=== PATIENT | male | born 1950 | race Hispanic/Latino ===

== ENCOUNTER 2020-12-30 18:07 | Emergency (ER) | payer MEDICARE ==
[2020-12-30] MEDS ORDERED: LIDOCAINE PF 100 MG/5 ML (CARDIAC SYRINGE) IV ONE ×2 (18:20→18:35)
[2020-12-30] MEDS ORDERED: ETOMIDATE 20 MG/10 ML INJ IV ONE (18:20)
[2020-12-30] MEDS ORDERED: ROCURONIUM 50 MG/5 ML INJ IV ONE (18:20)
[2020-12-30] MEDS ORDERED: ETOMIDATE 20 MG/10 ML INJ IV NR (18:35)
[2020-12-30] MEDS ORDERED: ROCURONIUM 50 MG/5 ML INJ IV NR (18:35)
[2020-12-30] MEDS ORDERED: MINERAL OIL/PETROLATUM, WHITE OPHTH OINT 3.5 GM OU PRN (18:35)
[2020-12-30] MEDS ORDERED: fentaNYL 100 MCG/2 ML INJ IV PRN (18:35)
[2020-12-30] MEDS ORDERED: LIP THERAPY VASELINE TP PRN (18:35)
[2020-12-30 18:38] LABS: Basophils % (Auto) 0.2 % (0.0-1.8); Eosinophils # (Auto) 0.1 K/mm3 (0.0-0.4); Eosinophils % (Auto) 2.7 % (0.0-4.3); Hematocrit 38.1 % (35.5-45.6); Hemoglobin 13.4 gm/dl (11.8-15.2); Mean Corpuscular HGB Conc 35 % (32-34); Mean Corpuscular Volume 93 fl (84-94); Monocytes # (Auto) 0.5 K/mm3 (0.0-0.8); Monocytes % (Auto) 8.4 % (0.0-7.3); Platelet Count 145 K/mm3 (140-440); Red Blood Count 4.11 M/mm3 (3.65-5.03); Red Cell Distribution Width 13.7 % (13.2-15.2)
[2020-12-30] MEDS ORDERED: hydrALAZINE 20 MG/1 ML INJ IV NR (18:39)
--- NOTE | 2020-12-30 18:39 | Emergency Department Report ---
ED General Adult HPI - General Chief complaint: Altered Mental Status Stated complaint: patient non verbal Time Seen by Provider: 12/30/20 18:09 Source: EMS (Verbal report received from emergency medical services. EMS documentation not available at time of chart dictation ), RN notes reviewed Mode of arrival: Stretcher Limitations: Altered Mental Status, Physical Limitation - History of Present Illness Initial comments: The patient was evaluated in the emergency department for symptoms described in the history of present illness. He/she was evaluated in the context of the global COVID-19 pandemic, which necessitated consideration that the patient might be at risk for infection with the virus that causes COVID-19. Institutional protocols and algorithms that pertain to the evaluation of patients at risk for COVID-19 are in a state of rapid change based on information released by regulatory bodies including the CDC and federal and state organizations. These policies and algorithms were followed during the patient's care in the emergency department. Please note that these policies, procedures and recommendations changed on a rapid basis. This is a 70-year-old gentleman. He is not known to myself previously. He is brought to the hospital by EMS as a possible code stroke. EMS believes that patient's last known well time is at approximately 5:05 PM, but they are not certain. They report normal Accu-Chek in the field. They stated that the patient was hypotensive in the field, and altered. Upon arrival to this emergency room, the patient is altered, and breathing sonorous sleep. He moves his right arm. He does not answer questions. He does not move his left arm or left leg. He started to vomit in the emergency room. He was intubated emergently for acute respiratory failure, inability to protect airway, and acute alteration in mental status. He was intubated using rapid sequence induction techniques. Please reference my procedure note. The patient is not currently accompanied by friends or family at this time for collateral information or additional information. Called up attached phone number, [phone]. It did not ring. There is no answer. At the moment, patient intubated, sedated, altered, not able to describe qualitative nature of symptoms, exacerbating factors, relieving factors or aggravating factors. -: unknown - Related Data Allergies Allergy/AdvReac Type Severity Reaction Status Date / Time meperidine [From Demerol] AdvReac Unknown Verified 12/30/20 21:59 ED Review of Systems ROS: Stated complaint: POSS CVA Other details as noted in HPI Comment: Unobtainable due to pts medical conditions ED Physical Exam - General Limitations: Altered Mental Status General appearance: obtunded - Head Head exam: Present: atraumatic, normocephalic - Eye Eye exam: Present: normal appearance, PERRL - ENT ENT exam: Present: normal exam, normal orophraynx, mucous membranes moist, normal external ear exam, other (Copious secretions noted in the oropharynx) - Neck Neck exam: Present: normal inspection. Absent: tenderness, meningismus - Respiratory Respiratory exam: Present: respiratory distress, rales - Cardiovascular Cardiovascular Exam: Present: normal rhythm, bradycardia, normal heart sounds. Absent: tachycardia, irregular rhythm, systolic murmur, diastolic murmur, rubs, gallop - GI/Abdominal GI/Abdominal exam: Present: soft. Absent: distended, tenderness, guarding, rebound, rigid, pulsatile mass - Rectal Rectal exam: Present: normal inspection - External exam: Present: normal external exam - Extremities Exam Extremities exam: Present: normal inspection, pedal edema, other (2+ pulses noted in the bilateral upper and lower extremities. There is no palpable cord. negative Homans sign. Muscular compartments are soft. The pelvis is stable.). Absent: calf tenderness - Back Exam Back exam: Present: normal inspection. Absent: tenderness, CVA tenderness (R), CVA tenderness (L), paraspinal tenderness, vertebral tenderness - Neurological Exam Neurological exam: Present: altered, other (The patient is initially sleepy. The patient makes nonspecific sounds. The patient moves right arm to pain. The eyes do not open spontaneously.) - Skin Skin exam: Present: warm, dry, intact, normal color. Absent: rash ED Course Vital Signs 12/30/20 12/30/20 12/30/20 18:25 18:27 18:31 Temperature 97.4 F L Pulse Rate 66 Respiratory 11 L Rate Blood Pressure O2 Sat by Pulse 100 100 100 Oximetry 12/30/20 12/30/20 12/30/20 18:40 19:01 19:10 Temperature Pulse Rate 57 L 59 L Respiratory 11 L 14 Rate Blood Pressure 194/80 244/93 O2 Sat by Pulse 100 100 100 Oximetry 12/30/20 12/30/20 12/30/20 19:24 19:25 19:51 Temperature Pulse Rate 55 L 59 L 54 L Respiratory 28 H Rate Blood Pressure 194/76 240/93 140/59 O2 Sat by Pulse 100 100 Oximetry 12/30/20 12/30/20 12/30/20 20:00 20:11 20:21 Temperature Pulse Rate 56 L 54 L 50 L Respiratory 28 H 24 18 Rate Blood Pressure 144/66 154/62 130/53 O2 Sat by Pulse 100 100 100 Oximetry 12/30/20 12/30/20 12/30/20 20:30 20:41 20:51 Temperature Pulse Rate 50 L 52 L 54 L Respiratory 12 22 36 H Rate Blood Pressure 126/56 124/55 114/45 O2 Sat by Pulse 100 100 99 Oximetry 12/30/20 12/30/20 12/30/20 21:00 21:11 21:21 Temperature Pulse Rate 57 L 56 L 56 L Respiratory 36 H 36 H 36 H Rate Blood Pressure 115/46 99/46 84/45 O2 Sat by Pulse 99 100 100 Oximetry 12/30/20 12/30/20 12/30/20 21:26 21:30 21:41 Temperature Pulse Rate 55 L 54 L 54 L Respiratory 36 H 36 H Rate Blood Pressure 114/45 84/45 86/50 O2 Sat by Pulse 100 100 100 Oximetry 12/30/20 12/30/20 12/30/20 21:51 22:00 22:11 Temperature Pulse Rate 54 L 52 L 50 L Respiratory 32 H 36 H 36 H Rate Blood Pressure 83/50 128/48 134/51 O2 Sat by Pulse 100 100 100 Oximetry 12/30/20 12/30/20 22:20 22:31 Temperature Pulse Rate 53 L 50 L Respiratory 36 H 36 H Rate Blood Pressure 116/56 137/57 O2 Sat by Pulse 100 100 Oximetry - Reevaluation(s) Reevaluation #1: 12/30/20 19:21 Differential diagnosis, including but not limited to: Stroke, ischemic versus hemorrhagic, pneumonia, urinary tract infection, toxic encephalopathy, metabolic encephalopathy Assessment and plan: 70-year-old gentleman with acute respiratory failure, and encephalopathy, secondary to massive hemorrhagic stroke, and supratherapeutic INR. He required intubation during his primary survey. He is not accompanied by friends or family at this time for collateral information or additional information. Nobody answered listed phone number, and it did not ring. Goals of care are not known at this time. Contacted our neurosurgeon on-call, Dr. Kamla Napoles Discussed the patient's history, physical, CT scan findings. He has also evaluated this patient CT scan personally. He recommends transfer to a higher level of care, as we are not able to intervene definitively on this patient. Patient will be ventilated aggressively, and hyperventilated. He will be loaded with 4 g of Keppra, head of bed to be elevated, and we will also start mannitol therapy. We will also begin him on propofol, and Cardene for blood pressure c ontrol. We will administer vitamin K, and for factor prothrombin complex concentrate. Patient still at this time does not have friends of family available for collateral information or additional information. 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 Nevertheless, we will maximally resuscitate this patient, and to transfer him to a high level of care. This patient will be emergently administratively consented by myself for transfer for higher level of care. 12/30/20 21:09 Multiple discussions had with neurosurgery, Dr. Kulkarni and neurology critical care, Dr. Carlos Groves They recommended discontinuation of patient's sedation, and repeat neurologic examination, in order to assess for neurologic salvageability. Therefore, fentanyl was discontinued, and propofol was not started. Off sedation, patient moves 4 extremities to painful stimuli. He has a gag and cough reflex, and gags and coughs when the endotracheal tube is manipulated, advanced, or deeply suction. Corneal reflexes are intact. Pupils are irregular, but his has since arrived, Ms. Mitzi Holliday; [phone]. She reports the patient takes Xarelto for A. fib. He takes 20 mg once daily. She states the patient is very regimented about taking his medications and he last took it this morning. Dr. Groves recommended Andexanet gertrudis for reversal of Xarelto. I called up our pharmacy. We do not carry this medication Recontacted Dr. Groves Have discussed this with him. He has articulated understanding. Patient is accepted to [facility]. I also had an extensive discussion with the patient's regarding the nature of his diagnosis, and the severity of his illness. She has signed informed consent for transfer, discussed the risk, benefits and alternatives. 12/30/20 22:50 Blood pressure dipped down to the 80s systolic. Cardene discontinued. 500 cc of normal saline ordered. - Consultations Consultation #1: 12/30/20 19:45 I discussed the patient's history, physical, pertinent laboratory studies and imaging studies with neurosurgeon at [place], Dr. Cornelio Kulkarni He has graciously agreed to consult on this patient at the [place] facility. Dr Carlos Kaufman will be the accepting neuro painting instructor \This patient has an emergent medical and/or surgical condition which cannot be definitively managed at this hospital as we do not have the necessary capability to provide monitoring and neurology critical care for this patient, and/or consulting neurosurgeon has recommended transfer to higher level of care. The patient is hemodynamically stable at this time, and emergently requires transfer for higher level of care. 12/30/20 21:09 - Intubation Time Out Performed: No (Emergency situation) Sedative: Etomidate Mg Given: 20 Paralytic: Rocuronium Mg Given: 100 Laryngoscope: fiberoptic video scope Size: 4 ET Tube Size: 7.5 Tube Secured Depth (cm): 23 Tube Secured Location: teeth Tube Placement Confirmation: visualized tube passing t, equal breath sounds bilat, no breath sounds over epi, confirmation by capnometr Patient Tolerated Procedure: well Intubation Complications: none Additional Comments: Prior to intubation, patient placed on nasal cannula at 15 L/min. He also received simultaneous hbs-etiro-ckuh ventilation with 100% FiO2. He is premedicated with 100 mg of lidocaine. He is induced with 20 mg of etomidate. He is paralyzed with 100 mg of rocuronium. Video laryngoscopy is performed, with a 7.5 endotracheal tube, while nasal cannula running at 15 L/min simultaneously. O2 sat is 99/100%. Trachea and vocal cords are easily identified, and under direct visualization, the patient is intubated. There is appropriate end-tidal capnography color change. There is condensation noted in the tube. This patient tolerated the procedure well. There were no obvious complications. Tube placement is confirmed through capnography, physical exam, Direct visualization, post procedure chest x-ray. The ferry pilot balloon was inflated after passing through the cords. ED Medical Decision Making - Lab Data Result diagrams: 12/30/20 18:27 12/30/20 18:27 Lab Results 12/30/20 12/30/20 12/30/20 Range/Units 18:27 18:27 18:27 WBC 5.5 (4.5-11.0) K/mm3 RBC 4.11 (3.65-5.03) M/mm3 Hgb 13.4 (11.8-15.2) gm/dl Hct 38.1 (35.5-45.6) % MCV 93 (84-94) fl MCH 33 H (28-32) pg MCHC 35 H (32-34) % RDW 13.7 (13.2-15.2) % Plt Count 145 (140-440) K/mm3 Lymph % (Auto) 19.0 (13.4-35.0) % [place] % (Auto) 8.4 H (0.0-7.3) % Eos % (Auto) 2.7 (0.0-4.3) % Baso % (Auto) 0.2 (0.0-1.8) % Lymph # (Auto) 1.0 L (1.2-5.4) K/mm3 [place] # (Auto) 0.5 (0.0-0.8) K/mm3 Eos # (Auto) 0.1 (0.0-0.4) K/mm3 Baso # (Auto) 0.0 (0.0-0.1) K/mm3 Seg Neutrophils % 69.7 (40.0-70.0) % Seg Neutrophils # 3.9 (1.8-7.7) K/mm3 PT 27.7 H (12.2-14.9) Sec. INR 2.53 H (0.87-1.13) APTT 31.7 (24.2-36.6) Sec. Thrombin Time 17.4 (15.1-19.6) Sec. Sodium 136 L (137-145) mmol/L Potassium 3.9 (3.6-5.0) mmol/L Chloride 100.7 (98-107) mmol/L Carbon Dioxide 25 (22-30) mmol/L Anion Gap 14 mmol/L BUN 21 H (9-20) mg/dL Creatinine 1.1 (0.8-1.3) mg/dL Estimated GFR > 60 ml/min BUN/Creatinine Ratio 19 % Glucose 243 H (75-100) mg/dL Lactic Acid (0.7-2.0) mmol/L Calcium 9.9 (8.4-10.2) mg/dL Magnesium (1.7-2.3) mg/dL Total Bilirubin 0.40 (0.1-1.2) mg/dL AST 19 (5-40) units/L ALT 17 (7-56) units/L Alkaline Phosphatase 97 (35-129) units/L Total Creatine Kinase 85 (55-170) units/L CK-MB (CK-2) 2.9 (0.0-4.0) ng/mL CK-MB (CK-2) Rel Index 3.4 (0-4) Troponin T < 0.010 (0.00-0.029) ng/mL Total Protein 7.3 (6.3-8.2) g/dL Albumin 3.7 L (3.9-5) g/dL Albumin/Globulin Ratio 1.0 % TSH (0.270-4.200) mlU/mL Salicylates (2.8-20.0) mg/dL Acetaminophen (10.0-30.0) ug/mL Plasma/Serum Alcohol (0-0.07) % 12/30/20 12/30/20 12/30/20 Range/Units 18:27 18:27 18:27 WBC (4.5-11.0) K/mm3 RBC (3.65-5.03) M/mm3 Hgb (11.8-15.2) gm/dl Hct (35.5-45.6) % MCV (84-94) fl MCH (28-32) pg MCHC (32-34) % RDW (13.2-15.2) % Plt Count (140-440) K/mm3 Lymph % (Auto) (13.4-35.0) % Furn[place] % (Auto) (0.0-7.3) % Eos % (Auto) (0.0-4.3) % Baso % (Auto) (0.0-1.8) % Lymph # (Auto) (1.2-5.4) K/mm3 Furnas # (Auto) (0.0-0.8) K/mm3 Eos # (Auto) (0.0-0.4) K/mm3 Baso # (Auto) (0.0-0.1) K/mm3 Seg Neutrophils % (40.0-70.0) % Seg Neutrophils # (1.8-7.7) K/mm3 PT (12.2-14.9) Sec. INR (0.87-1.13) APTT (24.2-36.6) Sec. Thrombin Time (15.1-19.6) Sec. Sodium (137-145) mmol/L Potassium (3.6-5.0) mmol/L Chloride (98-107) mmol/L Carbon Dioxide (22-30) mmol/L Anion Gap mmol/L BUN (9-20) mg/dL Creatinine (0.8-1.3) mg/dL Estimated GFR ml/min BUN/Creatinine Ratio % Glucose (75-100) mg/dL Lactic Acid 1.50 (0.7-2.0) mmol/L Calcium (8.4-10.2) mg/dL Magnesium 1.90 (1.7-2.3) mg/dL Total Bilirubin (0.1-1.2) mg/dL AST (5-40) units/L ALT (7-56) units/L Alkaline Phosphatase (35-129) units/L Total Creatine Kinase (55-170) units/L CK-MB (CK-2) (0.0-4.0) ng/mL CK-MB (CK-2) Rel Index (0-4) Troponin T (0.00-0.029) ng/mL Total Protein (6.3-8.2) g/dL Albumin (3.9-5) g/dL Albumin/Globulin Ratio % TSH (0.270-4.200) mlU/mL Salicylates (2.8-20.0) mg/dL Acetaminophen (10.0-30.0) ug/mL Plasma/Serum Alcohol < 0.01 (0-0.07) % 12/30/20 12/30/20 12/30/20 Range/Units 18:27 18:27 18:27 WBC (4.5-11.0) K/mm3 RBC (3.65-5.03) M/mm3 Hgb (11.8-15.2) gm/dl Hct (35.5-45.6) % MCV (84-94) fl MCH (28-32) pg MCHC (32-34) % RDW (13.2-15.2) % Plt Count (140-440) K/mm3 Lymph % (Auto) (13.4-35.0) % Furn[place] % (Auto) (0.0-7.3) % Eos % (Auto) (0.0-4.3) % Baso % (Auto) (0.0-1.8) % Lymph # (Auto) (1.2-5.4) K/mm3 Furn[place] # (Auto) (0.0-0.8) K/mm3 Eos # (Auto) (0.0-0.4) K/mm3 Baso # (Auto) (0.0-0.1) K/mm3 Seg Neutrophils % (40.0-70.0) % Seg Neutrophils # (1.8-7.7) K/mm3 PT (12.2-14.9) Sec. INR (0.87-1.13) APTT (24.2-36.6) Sec. Thrombin Time (15.1-19.6) Sec. Sodium (137-145) mmol/L Potassium (3.6-5.0) mmol/L Chloride (98-107) mmol/L Carbon Dioxide (22-30) mmol/L Anion Gap mmol/L BUN (9-20) mg/dL Creatinine (0.8-1.3) mg/dL Estimated GFR ml/min BUN/Creatinine Ratio % Glucose (75-100) mg/dL Lactic Acid (0.7-2.0) mmol/L Calcium (8.4-10.2) mg/dL Magnesium (1.7-2.3) mg/dL Total Bilirubin (0.1-1.2) mg/dL AST (5-40) units/L ALT (7-56) units/L Alkaline Phosphatase (35-129) units/L Total Creatine Kinase (55-170) units/L CK-MB (CK-2) (0.0-4.0) ng/mL CK-MB (CK-2) Rel Index (0-4) Troponin T (0.00-0.029) ng/mL Total Protein (6.3-8.2) g/dL Albumin (3.9-5) g/dL Albumin/Globulin Ratio % TSH 1.310 (0.270-4.200) mlU/mL Salicylates < 0.3 L (2.8-20.0) mg/dL Acetaminophen 5.0 L (10.0-30.0) ug/mL Plasma/Serum Alcohol (0-0.07) % - EKG Data -: EKG Interpreted by Sd EKG shows normal: sinus rhythm Rate: bradycardia - EKG Data When compared to previous EKG there are: previous EKG unavailable 12/30/20 19:27 The EKG is interpreted at 19: 20 Sinus rhythm, bradycardia, rate 54 bpm. Normal axis, normal P wave axis, QTC within normal limits, borderline first-degree AV block, RI interval 207 ms. Left ventricular hypertrophy. Abnormal EKG. Not a STEMI. There is no prior for comparison. - Radiology Data Radiology results: pending, report reviewed, image reviewed CHEST 1 VIEW INDICATION / CLINICAL INFORMATION: anms. COMPARISON: None available. FINDINGS: SUPPORT DEVICES: Endotracheal tube is present. The tip is approximately 3.3 cm from the yeimy. ET tube radiographically appears to be in satisfactory position. HEART / MEDIASTINUM: No significant abnormality. LUNGS / PLEURA: Low lung volumes. Left lung is grossly clear. There is subtle pulmonary opacity in the right lung base which is nonspecific and could be due to atelectasis or pneumonia. No significant pleural effusion or interstitial pulmonary edema noted. No pneumothorax. ADDITIONAL FINDINGS: No significant additional findings. IMPRESSION: 1. Low lung volumes. 2. Minimal right basilar pulmonary opacity, nonspecific. Possibilities include atelectasis versus pneumonia. Clinical correlation is recommended. Signer Name: Lita Fam MD Signed: 12/30/2020 5:42 PM Workstation Name: [id number] CT HEAD WITHOUT CONTRAST INDICATION / CLINICAL INFORMATION: Stroke symptoms. TECHNIQUE: All CT scans at this location are performed using CT dose reduction for ALARA by means of automated exposure control. COMPARISON: None available. FINDINGS: HEMORRHAGE: A large parenchymal hematoma is present in the left gangliocapsular region. This measures about 4.5 x 4.2 x 2.3 cm in overall size. There is intraventricular extension of hemorrhage with blood products filling the left lateral intercostal and third ventricle. Clot fills the aqueduct of Sylvius and fourth ventricle. Blood products are also demonstrated in the right lateral ventricle to a lesser degree. There is developing hydrocephalus. There are about 4 mm of wgwr-zy-vrmlo midline shift at the level of the septum pellucidum. There are approximately 8 mm of trir-ls-vslqz midline shift at the level of the floor the third ventricle. EXTRA-AXIAL SPACES: Cortical sulci are effaced over the left cerebral hemisphere secondary to mass effect resulting from large parenchymal hemorrhage and hydrocephalus. VENTRICULAR SYSTEM: Intraventricular extension of hemorrhage and development of hydrocephalus as described above. CEREBRAL PARENCHYMA: Large parenchymal hematoma left basic ganglia region is described above. MIDLINE SHIFT OR HERNIATION: Mass effect related to left basic ganglia hematoma results at about 4 mm of nyzd-xz-nseac midline shift at the level of the septum pellucidum at about 8 mm of left-to-ri ght midline shift at the level of the floor the third ventricle. CEREBELLUM / BRAINSTEM: Brainstem and cerebellum have an unremarkable appearance. MIDLINE STRUCTURES:No abnormalities of the pituitary gland or pineal region are identified. INTRACRANIAL VESSELS:No abnormalities are identified on this noncontrast head CT. ORBITS: visualized portions of the orbits have an unremarkable appearance. SOFT TISSUES of HEAD: No significant abnormality. CALVARIUM: Evaluation of bone windows reveals no abnormalities. PARANASAL SINUSES / MASTOID AIR CELLS: Visualized portions of the paranasal sinuses are fr ee from inflammatory mucosal disease. Mastoid air cells are normally pneumatized. IMPRESSION: 1. Large acute left gangliocapsular hematoma with intraventricular extension. 2. Developing hydrocephalus. 3. Gvet-gg-jyumo Transfalcine herniation as described above. CRITICAL RESULT: Time of Discovery (LANDING SIGNAL OFFICER/CDT): 1755 Central standard time Time of Communication (LANDING SIGNAL OFFICER/CDT): 1800 Central standard time Licensed Practitioner Receiving Report: Dr. Arnoldo myers of the [facility] emergency department. Read-Back Performed: Not applicable. Signer Name: Segundo Chavez MD Signed: 12/30/2020 6:09 PM Workstation Name: [id number] Critical Care Time: Yes Critical care time in (mins) excluding proc time.: 180 Critical care attestation.: If time is entered above; I have spent that time in minutes in the direct care of this critically ill patient, excluding procedure time. ED Disposition Clinical Impression: Acute respiratory failure, Hypertensive emergency, Acute encephalopathy, Intracranial hemorrhage, Anticoagulated, Hydrocephalus, Pulmonary infiltrate Disposition: 02 SHORT TERM HOSPITAL Is pt being admited?: No Does the pt Need Aspirin: No Condition: Critical Instructions: Hypertension (ED) Referrals: PRIMARY CARE, [Primary Care Provider] - 3-5 Days
--- NOTE | 2020-12-30 18:47 | XRay Report ---
CHEST 1 VIEW INDICATION / CLINICAL INFORMATION: anms. COMPARISON: None available. FINDINGS: SUPPORT DEVICES: Endotracheal tube is present. The tip is approximately 3.3 cm from the yeimy. ET tu be radiographically appears to be in satisfactory position. HEART / MEDIASTINUM: No significant abnormality. LUNGS / PLEURA: Low lung volumes. Left lung is grossly clear. There is subtle pulmonary opacity in th e right lung base which is nonspecific and could be due to atelectasis or pneumonia. No significant p leural effusion or interstitial pulmonary edema noted. No pneumothorax. ADDITIONAL FINDINGS: No significant additional findings. IMPRESSION: 1. Low lung volumes. 2. Minimal right basilar pulmonary opacity, nonspecific. Possibilities include atelectasis versus pne umonia. Clinical correlation is recommended. Signer Name: Lita Fam MD Signed: 12/30/2020 6:42 PM Workstation Name: [id number]
[2020-12-30 18:52] LABS: INR 2.53 (0.87-1.13)
[2020-12-30 18:54] LABS: Partial Thromboplastin Time 31.7 Sec. (24.2-36.6); Thrombin Time 17.4 Sec. (15.1-19.6)
[2020-12-30 18:57] LABS: Creatine Kinase MB 2.9 ng/mL (0.0-4.0)
[2020-12-30 18:59] LABS: Alanine Aminotransferase 17 units/L (7-56); Albumin 3.7 g/dL (3.9-5); BUN/Creatinine Ratio 19; Blood Urea Nitrogen 21 mg/dL (9-20); Calcium 9.9 mg/dL (8.4-10.2); Hemolysis Index 40
[2020-12-30] MEDS ORDERED: levETIRAcetam 1000 MG/NS 0.75% 1,000 MG/100 ML BAG IV ONE (18:59)
[2020-12-30] MEDS ORDERED: fentaNYL DRIP Premix 2,000 MCG/100 ML BAG IV SCH (19:00)
[2020-12-30] MEDS ORDERED: niCARdipine 50 MG in SODIUM CHLORIDE 0.9% 250ML 230 ML IV SCH (19:00)
[2020-12-30] MEDS ORDERED: PHYTONADIONE(ADULT ONLY) 10 MG in SODIUM CHLORIDE 0.9% 50 ML IV NR (19:04)
--- NOTE | 2020-12-30 19:13 | Cat Scan Report ---
CT HEAD WITHOUT CONTRAST INDICATION / CLINICAL INFORMATION: Stroke symptoms. TECHNIQUE: All CT scans at this location are performed using CT dose reduction for ALARA by means of automated e xposure control. COMPARISON: None available. FINDINGS: HEMORRHAGE: A large parenchymal hematoma is present in the left gangliocapsular region. This measures about 4.5 x 4.2 x 2.3 cm in overall size. There is intraventricular extension of hemorrhage with blo od products filling the left lateral intercostal and third ventricle. Clot fills the aqueduct of Sylv ius and fourth ventricle. Blood products are also demonstrated in the right lateral ventricle to a le sser degree. There is developing hydrocephalus. There are about 4 mm of xhhl-ns-vfilu midline shift a t the level of the septum pellucidum. There are approximately 8 mm of fksh-iy-lrmvk midline shift at the level of the floor the third ventricle. EXTRA-AXIAL SPACES: Cortical sulci are effaced over the left cerebral hemisphere secondary to mass ef fect resulting from large parenchymal hemorrhage and hydrocephalus. VENTRICULAR SYSTEM: Intraventricular extension of hemorrhage and development of hydrocephalus as desc ribed above. CEREBRAL PARENCHYMA: Large parenchymal hematoma left basic ganglia region is described above. MIDLINE SHIFT OR HERNIATION: Mass effect related to left basic ganglia hematoma results at about 4 mm of sasi-ww-vcfjh midline shift at the level of the septum pellucidum at about 8 mm of iocf-dv-vjqkj midline shift at the level of the floor the third ventricle. CEREBELLUM / BRAINSTEM: Brainstem and cerebellum have an unremarkable appearance. MIDLINE STRUCTURES:No abnormalities of the pituitary gland or pineal region are identified. INTRACRANIAL VESSELS:No abnormalities are identified on this noncontrast head CT. ORBITS: visualized portions of the orbits have an unremarkable appearance. SOFT TISSUES of HEAD: No significant abnormality. CALVARIUM: Evaluation of bone windows reveals no abnormalities. PARANASAL SINUSES / MASTOID AIR CELLS: Visualized portions of the paranasal sinuses are free from inf lammatory mucosal disease. Mastoid air cells are normally pneumatized. IMPRESSION: 1. Large acute left gangliocapsular hematoma with intraventricular extension. 2. Developing hydrocephalus. 3. Ubtw-pb-zwgtq Transfalcine herniation as described above. CRITICAL RESULT: Time of Discovery ([facility]/CDT): 1755 Central standard time Time of Communication ([facility]/CDT): 1800 Central standard time Licensed Practitioner Receiving Report: Dr. Arnoldo Howell of the [facility] emergency department. Read-Back Performed: Not applicable. Signer Name: Segundo Chavez MD Signed: 12/30/2020 7:09 PM Workstation Name: [id number]
[2020-12-30] MEDS ORDERED: MANNITOL 20% 500 ML IV ONE (19:16)
[2020-12-30] MEDS ORDERED: AZITHROMYCIN/NS 500 MG/250 ML 500 MG/250 ML BAG IV ONE (19:24)
[2020-12-30] MEDS ORDERED: cefTRIAXone/NS 1 GM/50 ML 1 GM/50 ML BAG IV ONE (19:30)
[2020-12-30] MEDS ORDERED: LEVETIRACETAM IV NR (19:30)
[2020-12-30] MEDS ORDERED: SODIUM CHLORIDE 0.9% IV NR (19:30)
[2020-12-30] MEDS ORDERED: MANNITOL IV ONE (20:00)
[2020-12-30] MEDS ORDERED: PROTHROMBIN COMPLEX HUMAN IV ONE (20:00)
[2020-12-30 21:22] LABS: Bacteria,Urine 1+ /HPF (Negative); Bilirubin,Urine NEG (Negative); Blood,Urine SM (Negative); Color,Urine Straw (Yellow); Mucus,Urine FEW /HPF; Urobilinogen,Urine < 2.0 mg/dL (<2.0)
[2020-12-30 21:28] LABS: Protein,Urine >500 mg/dL (Negative)
[2020-12-30] MEDS ORDERED: SODIUM CHLORIDE 0.9% 500 ML 500 ML IV ONE (21:38)
[2020-12-30] MEDS ORDERED: SODIUM CHLORIDE 0.9% 500 ML 500 ML ONE (21:39)
[2020-12-30 21:42] LABS: Amphetamine Screen,Urine Negative; Benzodiazepines Screen,Urine Negative; Cannabinoid Screen,Urine Negative; Cocaine Screen,Urine Negative; Methadone Screen,Urine Negative; Opiate Screen,Urine Negative
[2020-12-30] MEDS ORDERED: FAMOTIDINE 20 MG/2 ML INJ IV SCH (22:00)
[2020-12-30] MEDS ORDERED: SENNOSIDES/DOCUSATE SODIUM 8.6/50 MG TAB FEEDTUBE SCH (22:00)
[2020-12-30 23:05] VITALS: BP 137/46
--- NOTE | 2021-01-02 09:43 | Electrocardiograph Report ---
[facility] Test Date: 2020-12-30 Test Time: 19:20:53 Pat Name: ALFRED GONZALEZ Department: Room: Gender: M [employer] Driver: LUCY : 1950 Requested By: MARRY CABRAL Order Number: [id number] Reading MD: Martín Celestin Measurements Intervals [place] Rate: 54 P: 46 LA: 207 QRS: -4 QRSD: 105 T: 72 QT: 459 QTc: 438 Interpretive Statements Sinus bradycardia No previous ECG available for comparison Electronically Signed On 01-02-2021 9:42:34 EDT by Martín Celestin
== END 2020-12-30 23:00 | disposition short-term general hospital (02) ==
LOC: ED 18:07
DX: J96.00 Acute respiratory failure, unspecified whether with hypoxia or hypercapnia (principal); I16.0 Hypertensive urgency; G93.40 Encephalopathy, unspecified; I62.9 Nontraumatic intracranial hemorrhage, unspecified; D68.62 Lupus anticoagulant syndrome; G91.9 Hydrocephalus, unspecified; R91.8 Other nonspecific abnormal finding of lung field
CPT/HCPCS: 31500; 36415; 70450; 71045; 80053; 80307; 81001; 82140; 82550; 82553; 82805; 83735; 84443; 84484; 85025; 85610; 85670; 85730; 87040; 93005; 96365; 96366; 96368; 96375; 99291; 99292; J0360; J0456; J0696; J1953; J2001; J2150; J3010; J3430; J7040; J7050; J7195; 80320; 94002; 96374; G0480